=== PATIENT | female | born 1940 | race Caucasian/White ===

== ENCOUNTER 2023-03-06 08:12 | Emergency (ER) | payer MEDICARE ==
[2023-03-06 09:37] LABS: #Monocytes 0.2 10x3/uL (0.0-1.1); #Neutrophils 7.5 10x3/uL (1.5-8.4); %Basophils 0.1 % (0.0-2.0); %Lymphocytes 4.5 % (18.0-47.0); %Monocytes 2.4 % (0.0-10.0); %Neutrophils 92.8 % (40.0-75.0); ALT (SGPT) 25 U/L (8-55); AST (SGOT) 35 U/L (5-34); Albumin 4.2 g/dL (3.4-4.8); Alkaline Phosphatase 65 U/L (40-110); Anion Gap 14 mmol/L (10-20); BUN (Urea Nitrogen) 16 mg/dL (9.8-20.1); Bilirubin, Total 0.4 mg/dL (0.2-1.2); CK (CPK) 115 U/L (29-168); Calc. Creatinine Clearance 0 mL/min (70-130); Calcium 9.3 mg/dL (7.8-10.44); Carbon Dioxide 23 mmol/L (23-31); Chloride 106 mmol/L (98-107); Estimated GFR 81; Globulin 2.6 g/dL (2.4-3.5); Glucose 151 mg/dL (83-110); Hemoglobin 13.2 g/dL (12.0-15.5); Lipase 29 U/L (8-78); Magnesium 2.2 mg/dL (1.6-2.6); Mean Corpuscular HGB CONC 33.3 g/dL (32.0-36.0); Mean Corpuscular Hemoglobin 32.2 pg (27.0-33.0); Mean Corpuscular Volume 96.6 fl (81.6-98.3); Mean Platelet Volume 10.7 fl (7.4-10.4); Platelet Count 152 10x3/uL (150-450); Potassium 3.6 mmol/L (3.5-5.1); Protein, Total 6.8 g/dL (5.8-8.1); RBC Distribution Width 11.7 % (11.5-14.5); Sodium 139 mmol/L (136-145); White Blood Cell (WBC) Count 8.1 10x3/uL (3.5-10.5)
[2023-03-06 09:58] LABS: Acetaminophen Less than 10 mcg/mL (10.0-30.0); Alcohol Less than 10.0 mg/dL (Less than 10); Salicylate Less than 8.0 mg/dL (15.0-30.0)
[2023-03-06] MEDS ORDERED: Ondansetron PF 4 MG/2 ML Vial ONE ×2 (10:02→11:13)
[2023-03-06 10:47] LABS: Bilirubin Neg (Negative); Blood, Urine 10 (Negative); Clarity Clear (Clear); Glucose, Urine (Dipstick) Normal (Negative); Ketone, Urine 5 mg/dL (Negative); Leukocyte Negative (Negative); Nitrite Negative (Negative); Protein, Urine (Dipstick) 15 mg/dl (Neg-Trace); Specific Gravity, Urine 1.015 (1.005-1.030); Urobilinogen Normal mg/dL (Less than 2)
[2023-03-06 10:56] LABS: Bacteria/HPF None Seen HPF (None Seen); CAUTI Indications for Culture Pelvic or flank pain; RBC/HPF 0-3 HPF (0-3); Squamous Epithelial 0-3 HPF (0-3); WBC/HPF 0-3 HPF (0-3)
[2023-03-06 10:58] LABS: Urine Culture Reflex No No
[2023-03-06] MEDS ORDERED: Acetaminophen 500 MG TAB ONE (11:13)
[2023-03-06] MEDS ORDERED: Aspirin Chewable 81 MG TAB ONE (12:45)
== END 2023-03-06 12:47 | disposition home or self-care (01) ==
LOC: CSHERS 08:12
DX: R51.9 Headache, unspecified (principal); R53.1 Weakness; R11.0 Nausea; E03.9 Hypothyroidism, unspecified
CPT/HCPCS: 70450; 80053; 80307; 81001; 82550; 83690; 83735; 84484; 85025; 93005; 96374; 96376; J2405

== ENCOUNTER 2023-10-02 13:06 | Inpatient (IN) | payer MEDICARE ==
[2023-10-02] MEDS ORDERED: traMADol HCl 50 MG TAB ONE (13:39)
[2023-10-02] MEDS ORDERED: Ibuprofen 200 MG TAB ONE (13:39)
[2023-10-02] MEDS ORDERED: Boostrix 0.5 ML (Tdap) VIAL (>/=7 yrs of age) ONE (16:43)
[2023-10-02] MEDS ORDERED: Ondansetron PF 4 MG/2 ML Vial IVP PRN (17:17)
[2023-10-02] MEDS ORDERED: HYDROcodone/Acetaminophen 5/325 mg Tablet PO PRN (17:17)
[2023-10-02] MEDS ORDERED: Acetaminophen 325 MG TAB PO PRN (17:17)
[2023-10-02] MEDS: traMADol HCl 50 MG TAB PO PRN (21:53)
[2023-10-02] MEDS: Ondansetron ODT 4 MG TAB PO PRN (21:54)
[2023-10-02 22:55] VITALS: BMI 15.5
[2023-10-03 03:55] LABS: #Basophils 0.1 10x3/uL (0.0-0.2); #Monocytes 0.8 10x3/uL (0.0-1.1); #Neutrophils 5.3 10x3/uL (1.5-8.4); %Basophils 0.8 % (0.0-2.0); %Eosinophils 0.4 % (0.0-6.0); %Lymphocytes 15.8 % (18.0-47.0); %Monocytes 10.8 % (0.0-10.0); %Neutrophils 71.9 % (40.0-75.0); Hematocrit 34.3 % (34.9-44.5); Hemoglobin 11.4 g/dL (12.0-15.5); Mean Corpuscular HGB CONC 33.2 g/dL (32.0-36.0); Mean Corpuscular Hemoglobin 32.5 pg (27.0-33.0); Mean Corpuscular Volume 97.7 fl (81.6-98.3); Mean Platelet Volume 10.7 fl (7.4-10.4); Platelet Count 157 10x3/uL (150-450); RBC Distribution Width 11.9 % (11.5-14.5); Red Blood Cell (RBC) Count 3.51 10x6/uL (3.90-5.03); White Blood Cell (WBC) Count 7.4 10x3/uL (3.5-10.5)
[2023-10-03 04:08] LABS: Anion Gap 12 mmol/L (10-20); BUN (Urea Nitrogen) 17 mg/dL (9.8-20.1); Calc. Creatinine Clearance 35 mL/min (70-130); Carbon Dioxide 23 mmol/L (23-31); Chloride 105 mmol/L (98-107); Estimated GFR 79; Glucose 100 mg/dL (83-110); Potassium 4.2 mmol/L (3.5-5.1); Sodium 136 mmol/L (136-145)
[2023-10-03] MEDS: Ondansetron ODT 4 MG TAB PO PRN (11:31)
[2023-10-03] MEDS ORDERED: Promethazine 25 MG TAB PO PRN (14:16)
[2023-10-03] MEDS ORDERED: Promethazine HCl 25 MG, Admixture Fee 1 EACH in Sodium Chloride 0.9% 50 ML IVPB PRN (14:16)
[2023-10-03] MEDS: traMADol HCl 50 MG TAB PO PRN ×2 (15:53→21:12)
[2023-10-03] MEDS: Sertraline 100 MG TAB PO SCH (20:26)
[2023-10-04] MEDS ORDERED: Levothyroxine Sodium 25 MCG TAB PO SCH (06:00)
[2023-10-04] MEDS: traMADol HCl 50 MG TAB PO PRN ×2 (14:01→20:05)
[2023-10-04] MEDS: Sertraline 100 MG TAB PO SCH (20:05)
[2023-10-04 22:38] VITALS: BP 138/86; TEMP 99
== END 2023-10-04 22:46 | DRG 563 ==
LOC: CSHERS 13:06 → CSHERHOLD 16:44 → CSHTELE 21:22
PROVIDERS: ADMIT Internal Medicine; ATTEND Internal Medicine
DX: S42.202A Unspecified fracture of upper end of left humerus, initial encounter for closed fracture (principal); W18.30XA Fall on same level, unspecified, initial encounter; Z88.5 Allergy status to narcotic agent; E03.9 Hypothyroidism, unspecified; M81.0 Age-related osteoporosis without current pathological fracture; Z90.710 Acquired absence of both cervix and uterus; Z90.89 Acquired absence of other organs; Z98.890 Other specified postprocedural states; F41.9 Anxiety disorder, unspecified; Z79.82 Long term (current) use of aspirin; Z79.899 Other long term (current) drug therapy
CPT/HCPCS: 36415; 80048; 85025; 90471; 90715; J2550; Q0162